=== PATIENT | female | born 1970 | race Caucasian/White ===

== ENCOUNTER 2016-08-08 17:12 | Emergency (ER) | payer OTHER ==
[~2016-08-08] VITALS: Ht 180.3 cm; Wt 91.8 kg
[~2016-08-08 17:12] MED LIST: ABILIFY2 MG PO; ACID CONTROL150 MG PO; ADVAIR 250/501 DISK IH; ADVAIR 500-501 EACH IH; ADVAIR 500/501 DISK IH; ALBUTEROL INHALER; ALBUTEROL NEB; ALBUTEROL SULF8.5 GM IH; ALBUTEROL2.5 MG/0.5 IH; AMBIEN10 MG PO; AMITIZA24 MICROGR PO; AZITHROMYCIN250 MG1 PO; BENADRYL25 MG PO; BENADRYL50 MG PO; BUMEX1 MG PO; CALAN80 MG PO; CALCIUM 600 +1 EAC9 PO; CALCIUM CARBON600 M1 PO; CALCIUM600 MG PO; CARBATROL-ER100 MG PO; CITRATE OF MAG296 ML PO; CLONAZEPAM0.5 MG PO; CYMBALTA60 MG PO; Calan PO; Cipro PO; D H E IM; DEMADEX20 MG PO; DEMEROL; DEPAKOTE; DEPAKOTE ER500 MG PO; DEPAKOTE250 MG PO; DEXILANT60 MG PO; DIHYDROERGO1 MG/1 ML SQ; DIVALPROEX SOD500 M1 PO; DOCUSATE SODIU100 MG PO; DULOXETINE HCL60 MG PO; DUONEB 2.5-0.5 M3 ML AEROSOL; FIORICET,ESG1 TABLET PO; FLEXERIL10 MG PO; Flagyl PO; GABAPENTIN300 MG PO; GABAPENTIN600 MG PO; GABAPENTIN800 MG PO; GRALISE600 MG PO; GUAIFENESIN WI120 M1 PO; HYDROCODON-ACE1 EAC7 PO; IPRATR-ALBUTEROL3 ML IH; K-DUR10 MEQ PO; LEVAQUIN500 MG PO; LEVAQUIN750 MG PO; LEVOFLOXACIN500 MG PO; LEVOFLOXACIN750 MG PO; LOPRESSOR25 MG PO; LYRICA100 MG PO; METAXALONE800 MG PO; METHYLPHENIDATE20 M1 PO; METOPROLOL TART25 MG PO; MIRALAX255 GM PO; MONTELUKAST SOD10 MG PO; MUCINEX600 MG PO; MYCOSTATIN 100,60 ML PO; NEURONTIN600 MG PO; NUVIGIL150 MG PO; OMEPRAZOLE40 M1 PO; OXYCODONE HCL15 MG PO; OXYCODONE HCL30 MG PO; PERCOCET 10/1 TABLET PO; PHENERGAN25 MG PR; PHENERGAN25 MG/1 ML; PREDNISONE10 MG PO; PREDNISONE20 MG PO; PRILOSEC OTC20 MG PO; PRILOSEC20 MG PO; PRILOSEC20.6 MG PO; PROAIR HFA8.5 GM IH; PROAIR HFA8.5 GM PO; PROMETHAZINE HC25 M1 PO; PROMETHAZINE HC25 MG PR; PROVENTIL,2.5 MG/3 M IH; PROVENTIL,200 INHALA IH; PROVENTIL17 GM IH; RITALIN20 MG PO; ROXICODONE15 MG PO; SINGULAIR10 MG PO; SINGULAIR5 MG PO; SPIRIVA RESPIMAT4 GM IH; SPIRIVA1 INHALATI IH; TESSALON200 MG PO; THEO-DUR,THEOC200 MG PO; THEOCHRON200 MG PO; THEOPHYLLINE A200 M1 PO; THEOPHYLLINE A300 M1 PO; TIZANIDINE HCL4 MG PO; TRAMADOL HCL50 MG PO; TUDORZA PRESS400 MCG IH; TYLENOL REGULA325 MG PO; TYLENOL SINUS PO; Tylenol Regular Stre PO; VENTOLIN HFA18 GM IH; VERAPAMIL ER300 MG; WELLBUTRIN75 MG PO; ZANTAC150 MG PO; ZOFRAN ODT4 MG PO; ZOFRAN4 MG PO; ZOLPIDEM TARTRA10 MG PO; ZOMIG ZMT5 MG; [UNRECOGNIZED DRUG - OTHER]; advair; singulair
[2016-08-08] MEDS ORDERED: ULTRAM50 MG PO (20:10)
[2016-08-08 21:21] VITALS: BP 102/75
== END 2016-08-08 21:22 | disposition home or self-care (01) ==
LOC: EME 17:12
DX: S86.911A Strain of unspecified muscle(s) and tendon(s) at lower leg level, right leg, initial encounter (principal); M17.11 Unilateral primary osteoarthritis, right knee; K21.9 Gastro-esophageal reflux disease without esophagitis; G40.909 Epilepsy, unspecified, not intractable, without status epilepticus; J44.9 Chronic obstructive pulmonary disease, unspecified; Z88.2 Allergy status to sulfonamides; Z91.041 Radiographic dye allergy status; Z88.1 Allergy status to other antibiotic agents; Z88.6 Allergy status to analgesic agent; Z87.891 Personal history of nicotine dependence
CPT/HCPCS: 73564; 93971; 99281; 99284; J3010

== ENCOUNTER 2016-08-11 23:07 | Inpatient (IN) | payer OTHER ==
[~2016-08-11] VITALS: Ht 180.3 cm; Wt 101.5 kg
[~2016-08-11 23:07] MED LIST changes: +ULTRAM50 MG PO
[2016-08-11 23:32] LABS: BASOPHIL COUNT 0.1 K/uL (0-0.1); EOSINOPHIL (%) 3.4 % (0-5); EOSINOPHIL COUNT 0.5 K/uL (0-0.3); IMMATURE GRANULOCYTE (%) 0.4 % (0.0-0.7); IMMATURE GRANULOCYTE COUNT 0.1 K/uL; INSTRUMENT ABS NEUTROPHIL CT 10.8 K/uL; MCH 28.4 PG (29.0-34.0); MCHC 32.1 G/DL (30.0-36.0); MCV 88.4 FL (83-99); MEAN PLAT.VOLUME 10.4 uM^3 (9.5-12.4); MONOCYTE (%) 6.2 % (3-12); NEUTROPHIL (%) 70.4 % (45-76); NEUTROPHIL COUNT 10.8 K/uL (1.8-6.4); PLATELET COUNT 320 K/uL (156-360); RBC DIS.WIDTH-CV 13.3 % (11.8-14.6); RBC DIS.WIDTH-SD 43.6 % (39-53); RED BLOOD COUNT 4.75 M/uL (3.80-5.20); WHITE BLOOD COUNT 15.4 K/uL (4.1-10.2)
[2016-08-11 23:40] LABS: AMYLASE 53 IU/L (1-118); CHLORIDE 106 mEq/L (99-109); POTASSIUM 4.3 mEq/L (3.7-5.4); SODIUM 142 mEq/L (136-147)
[2016-08-11 23:42] LABS: GLUCOSE 114 mg/dL (70-99)
[2016-08-11 23:43] LABS: ANION GAP 11 MEQ/L (2-14)
[2016-08-11 23:45] LABS: SERUM ETHYL ALCOHOL < 10 mg/dL
[2016-08-11 23:46] LABS: GFR ESTIMATE (CALCULATED) 57 mL/min/
[2016-08-11 23:47] LABS: UREA NITROGEN (BUN) 10 mg/dL (9-23)
[2016-08-11 23:49] LABS: LIPASE 20 U/L (1.0-51.0)
[2016-08-11 23:55] LABS: QUANTITATIVE HCG < 4.0 MIU/ML
[2016-08-12] VITALS (7 sets, daily range): BP systolic 93–117; BP diastolic 54–69
[2016-08-12] MEDS ORDERED: K-DUR20 MEQ PO (15:26)
[2016-08-12] MEDS ORDERED: PREDNISONE10 MG PO (15:30)
[2016-08-12] MEDS ORDERED: KLONOPIN1 MG PO (15:33)
[2016-08-12] MEDS ORDERED: VENLAFAXINE HC150 M1 PO (15:36)
[2016-08-13 03:58] VITALS: BP 109/56
[2016-08-13 07:48] VITALS: BP 106/51
[2016-08-13 11:26] VITALS: BP 96/53
[2016-08-13 15:00] VITALS: BP 114/65
[2016-08-13 19:26] VITALS: BP 104/55
[2016-08-13] MEDS ORDERED: PREDNISONE20 MG PO (21:12)
[2016-08-13 22:00] VITALS: BP 132/78
== END 2016-08-13 22:33 | disposition short-term general hospital (02) | DRG 563 ==
LOC: EME 23:07 → EDOF 08-12 02:15 → 3EAST 08-12 02:15
PROVIDERS: Emergency Medicine
DX: S82.852A Displaced trimalleolar fracture of left lower leg, initial encounter for closed fracture (principal); S93.02XA Subluxation of left ankle joint, initial encounter; I95.9 Hypotension, unspecified; S92.345A Nondisplaced fracture of fourth metatarsal bone, left foot, initial encounter for closed fracture; S92.335A Nondisplaced fracture of third metatarsal bone, left foot, initial encounter for closed fracture; S92.325A Nondisplaced fracture of second metatarsal bone, left foot, initial encounter for closed fracture; Z87.891 Personal history of nicotine dependence; E66.3 Overweight; W18.39XA Other fall on same level, initial encounter; Y93.E1 Activity, personal bathing and showering; Y92.012 Bathroom of single-family (private) house as the place of occurrence of the external cause; J45.909 Unspecified asthma, uncomplicated; J32.9 Chronic sinusitis, unspecified; M47.9 Spondylosis, unspecified; G89.4 Chronic pain syndrome; F41.9 Anxiety disorder, unspecified; M17.11 Unilateral primary osteoarthritis, right knee; Z68.31 Body mass index [BMI] 31.0-31.9, adult; J44.9 Chronic obstructive pulmonary disease, unspecified; F31.9 Bipolar disorder, unspecified
CPT/HCPCS: 71010; 73590; 73610; 73700; 80048; 81003; 82150; 83605; 83690; 84702; 85025; 86900; 86901; 87040; 93005; 94640; 94640 76; 94799; 99202; 99281; 99285; G0480; J1170; J2270; J3010; J7030; J7512

== ENCOUNTER 2016-08-20 09:01 | Inpatient (IN) | payer OTHER ==
[~2016-08-20] VITALS: Ht 167.6 cm; Wt 93.1 kg
[~2016-08-20 09:01] MED LIST changes: +K-DUR20 MEQ PO; +KLONOPIN1 MG PO; +VENLAFAXINE HC150 M1 PO
[2016-08-20 12:12] LABS: HEMATOCRIT 38.3 % (36.0-46.0); MCH 28.5 PG (29.0-34.0); MCHC 32.1 G/DL (30.0-36.0); MCV 88.7 FL (83-99); MEAN PLAT.VOLUME 10.1 uM^3 (9.5-12.4); RBC DIS.WIDTH-CV 13.4 % (11.8-14.6); RBC DIS.WIDTH-SD 43.6 % (39-53); RED BLOOD COUNT 4.32 M/uL (3.80-5.20); WHITE BLOOD COUNT 14.6 K/uL (4.1-10.2)
[2016-08-20 12:19] LABS: CHLORIDE 106 mEq/L (99-109); PLATELET COUNT 436 K/uL (156-360); POTASSIUM 4.1 mEq/L (3.7-5.4); SODIUM 143 mEq/L (136-147)
[2016-08-20 12:21] LABS: GLUCOSE 97 mg/dL (70-99)
[2016-08-20 12:22] LABS: ANION GAP 15 MEQ/L (2-14)
[2016-08-20 12:23] LABS: TOTAL BILIRUBIN 0.6 mg/dL (0.0-1.0)
[2016-08-20 12:24] LABS: SERUM ETHYL ALCOHOL < 10 mg/dL
[2016-08-20 12:25] LABS: GFR ESTIMATE (CALCULATED) > 59 mL/min/
[2016-08-20 12:26] LABS: ALKALINE PHOSPHATASE 98 IU/L (3-129)
[2016-08-20 12:27] LABS: UREA NITROGEN (BUN) 12 mg/dL (9-23)
[2016-08-20 12:28] LABS: SALICYLATE < 5.0 MG/DL (15-30)
[2016-08-20 13:05] LABS: ADD MIUA? YES; BILIRUBIN NEGATIVE; BLOOD SMALL; COLOR YELLOW ((YELLOW)); GLUCOSE (STRIP) NEGATIVE; KETONES 80; LEUKOCYTES TRACE; NITRITE NEGATIVE; PROTEIN (STRIP) NEGATIVE; SPECIFIC GRAVITY 1.024 (1.000-1.030); UROBILINOGEN 0.2 MG/DL (0.2-1.0)
[2016-08-20 13:16] LABS: ADD MEDTOX COMMENT Y; AMPHETAMINE NEGATIVE (500 ng/mL); BARBITURATES NEGATIVE (200 ng/mL); BENZODIAZEPINES PRESUMPTIVE POSITIVE (150 ng/mL); COCAINE NEGATIVE (150 ng/mL); INTERNAL CONTROLS VALID? YES; METHADONE NEGATIVE (200 ng/mL); METHAMPHETAMINE NEGATIVE (500 ng/mL); OPIATES (MORPHINE) NEGATIVE (100 ng/mL); OXYCODONE PRESUMPTIVE POSITIVE (100 ng/mL); PHENCYCLIDINE NEGATIVE (25 ng/mL); PROPOXYPHENE NEGATIVE (300 ng/mL); THC CANNABINOIDS NEGATIVE (50 ng/mL); TRICYCLIC ANTIDEPRESSANTS NEGATIVE (300 ng/mL)
[2016-08-20 13:47] LABS: BACTERIA RARE /HPF; CALCIUM OXALATE CRYSTALS 1+ /HPF; EPITHELIAL CELLS 1+ /HPF; MUCUS 4+ /LPF; RED BLOOD CELLS 0-5 /HPF (0-5); UCUL ADDED? NO; WHITE BLOOD CELLS 0-5 /HPF (0-5)
[2016-08-20 14:01] LABS: BENZODIAZEPINES QUANT VALUE 0 NG/ML; BENZODIAZEPINES, URINE SCREEN Negative (200 ng/mL)
[2016-08-20] MEDS ORDERED: DIHYDROERGO1 MG/1 ML SC (17:33)
[2016-08-20] MEDS ORDERED: PREDNISONE10 MG PO (18:02)
[2016-08-20] MEDS ORDERED: METOLAZONE2.5 MG PO (18:03)
[2016-08-20] MEDS ORDERED: TORSEMIDE20 MG PO (18:03)
[2016-08-20] MEDS ORDERED: BACLOFEN10 MG PO (18:04)
[2016-08-20] MEDS ORDERED: NYSTATIN100000 UN1 PO (18:04)
[2016-08-20] MEDS ORDERED: LOVENOX30 MG/0.3 SC (18:04)
[2016-08-20] MEDS ORDERED: COLACE100 MG PO (18:04)
[2016-08-20 21:46] VITALS: BP 142/81
[2016-08-21 03:16] VITALS: BP 170/76
[2016-08-21 06:35] LABS: HEMATOCRIT 34.9 % (36.0-46.0); MCH 29.4 PG (29.0-34.0); MCHC 33.8 G/DL (30.0-36.0); MEAN PLAT.VOLUME 10.6 uM^3 (9.5-12.4); PLATELET COUNT 470 K/uL (156-360); RBC DIS.WIDTH-CV 13.2 % (11.8-14.6); RBC DIS.WIDTH-SD 41.7 % (39-53); RED BLOOD COUNT 4.01 M/uL (3.80-5.20); WHITE BLOOD COUNT 14.5 K/uL (4.1-10.2)
[2016-08-21 06:52] VITALS: BP 145/80
[2016-08-21 07:03] LABS: ALKALINE PHOSPHATASE 91 IU/L (3-129); ANION GAP 14 MEQ/L (2-14); CHLORIDE 105 MEQ/L (99-109); GFR ESTIMATE (CALCULATED) > 59 mL/min/; GLUCOSE 101 mg/dL (70-99); POTASSIUM 4.2 MEQ/L (3.7-5.4); SAMPLE HEMOLYSIS CHECK 0; SAMPLE ICTERIC CHECK 0; SAMPLE LIPEMIA CHECK 0; SODIUM 141 MEQ/L (136-147); TOTAL BILIRUBIN 0.4 MG/DL (0.0-1.0); UREA NITROGEN (BUN) 15 mg/dL (9-23)
[2016-08-21 11:18] VITALS: BP 148/83
[2016-08-21 13:19] LABS: C DIFF TOXIN NEGATIVE (NEGATIVE); PROBE CHECK PASS; SPECIMEN PROCESSING CONTROL PASS
[2016-08-21 16:00] VITALS: BP 126/81
[2016-08-21 19:32] VITALS: BP 136/81
[2016-08-22 04:19] VITALS: BP 129/66
[2016-08-22 07:39] VITALS: BP 137/75
[2016-08-22 15:00] VITALS: BP 140/82
[2016-08-23 05:40] LABS: HEMATOCRIT 34.8 % (36.0-46.0); MCH 29.4 PG (29.0-34.0); MCHC 33.3 G/DL (30.0-36.0); MCV 88.1 FL (83-99); MEAN PLAT.VOLUME 10.2 uM^3 (9.5-12.4); PLATELET COUNT 439 K/uL (156-360); RBC DIS.WIDTH-CV 13.3 % (11.8-14.6); RBC DIS.WIDTH-SD 42.7 % (39-53); RED BLOOD COUNT 3.95 M/uL (3.80-5.20); WHITE BLOOD COUNT 11.9 K/uL (4.1-10.2)
[2016-08-23 06:35] LABS: ALKALINE PHOSPHATASE 84 IU/L (3-129); ANION GAP 10 MEQ/L (2-14); CHLORIDE 108 MEQ/L (99-109); GFR ESTIMATE (CALCULATED) > 59 mL/min/; GLUCOSE 82 mg/dL (70-99); POTASSIUM 3.5 MEQ/L (3.7-5.4); SAMPLE HEMOLYSIS CHECK 0; SAMPLE ICTERIC CHECK 0; SAMPLE LIPEMIA CHECK 0; SODIUM 144 MEQ/L (136-147); UREA NITROGEN (BUN) 5 mg/dL (9-23)
[2016-08-23 06:47] LABS: TOTAL BILIRUBIN 0.3 MG/DL (0.0-1.0)
[2016-08-23 07:38] VITALS: BP 132/60
[2016-08-23 12:17] VITALS: BP 130/78
[2016-08-23 15:51] VITALS: BP 134/81
[2016-08-24 00:05] VITALS: BP 130/78
[2016-08-24 08:22] VITALS: BP 134/87
[2016-08-24] MEDS ORDERED: GABAPENTIN600 MG PO (14:55)
[2016-08-24] MEDS ORDERED: ROXICODONE15 MG PO (14:55)
== END 2016-08-24 16:10 | disposition home or self-care (01) | DRG 918 ==
LOC: EME → EDBD 09:01 → 5EAST 17:35 → EDOF 17:35 → 5EAST 21:35
PROVIDERS: Emergency Medicine; Internal Medicine
DX: T50.901A Poisoning by unspecified drugs, medicaments and biological substances, accidental (unintentional), initial encounter (principal); F05 Delirium due to known physiological condition; S82.853D Displaced trimalleolar fracture of unspecified lower leg, subsequent encounter for closed fracture with routine healing; S92.302D Fracture of unspecified metatarsal bone(s), left foot, subsequent encounter for fracture with routine healing; M79.7 Fibromyalgia; G89.4 Chronic pain syndrome; G47.00 Insomnia, unspecified; J44.9 Chronic obstructive pulmonary disease, unspecified; J32.9 Chronic sinusitis, unspecified; K21.9 Gastro-esophageal reflux disease without esophagitis; Z87.891 Personal history of nicotine dependence
CPT/HCPCS: 70450; 80053; 81003; 82140; 84999; 85027; 87493; 94640; 94640 76; 94760; 99202; 99281; 99285; G0480; J1630; J1650; J2060; J2250; J7512

== ENCOUNTER 2017-07-11 10:20 | Emergency (ER) | payer OTHER ==
[~2017-07-11] VITALS: Ht 180.3 cm; Wt 96.9 kg
[~2017-07-11 10:20] MED LIST changes: +BACLOFEN10 MG PO; +COLACE100 MG PO; +DIHYDROERGO1 MG/1 ML SC; +LOVENOX30 MG/0.3 SC; +METOLAZONE2.5 MG PO; +NYSTATIN100000 UN1 PO; +TORSEMIDE20 MG PO
[2017-07-11] MEDS ORDERED: PERCOCET 5/31 TABLET PO (12:20)
[2017-07-11 12:38] VITALS: BP 101/71
[2017-07-15] MEDS ORDERED: PERCOCET 10/1 TABLET PO (16:47)
[2017-07-15] MEDS ORDERED: MORPHINE SULFAT15 MG PO (16:48)
[2017-07-15] MEDS ORDERED: TRAZODONE HCL100 MG PO (16:49)
[2017-07-15] MEDS ORDERED: NEURONTIN800 MG PO (16:50)
== END 2017-07-11 12:49 | disposition home or self-care (01) ==
LOC: EME 10:20
PROC: 2W3QX1Z Immobilization of Right Lower Leg using Splint (ICD-10-PCS; principal; 2017-07-11)
DX: S82.831A Other fracture of upper and lower end of right fibula, initial encounter for closed fracture (principal); S60.212A Contusion of left wrist, initial encounter; W01.0XXA Fall on same level from slipping, tripping and stumbling without subsequent striking against object, initial encounter; K21.9 Gastro-esophageal reflux disease without esophagitis; J44.9 Chronic obstructive pulmonary disease, unspecified; F41.9 Anxiety disorder, unspecified; F32.9 Major depressive disorder, single episode, unspecified; Z98.51 Tubal ligation status; Z88.6 Allergy status to analgesic agent; Z88.5 Allergy status to narcotic agent; Z88.2 Allergy status to sulfonamides; Z87.891 Personal history of nicotine dependence; F10.10 Alcohol abuse, uncomplicated; Z91.041 Radiographic dye allergy status
CPT/HCPCS: 73110; 73610; 99281; 99284

== ENCOUNTER 2017-07-20 09:06 | Day surgery (SDC) | payer OTHER ==
[~2017-07-20] VITALS: Ht 180.3 cm; Wt 90.7 kg
[~2017-07-20 09:06] MED LIST changes: +MORPHINE SULFAT15 MG PO; +NEURONTIN800 MG PO; +PERCOCET 5/31 TABLET PO; +TRAZODONE HCL100 MG PO
[2017-07-20 09:30] VITALS: BP 114/66
[2017-07-20 14:35] VITALS: BP 108/64
[2017-07-20 15:14] VITALS: BP 110/56
== END 2017-07-20 15:30 | disposition home or self-care (01) ==
LOC: SDC 09:06
PROC: 0QSJ04Z Reposition Right Fibula with Internal Fixation Device, Open Approach (ICD-10-PCS; principal; 2017-07-20)
DX: S82.841A Displaced bimalleolar fracture of right lower leg, initial encounter for closed fracture (principal); W19.XXXA Unspecified fall, initial encounter; J44.9 Chronic obstructive pulmonary disease, unspecified; G40.909 Epilepsy, unspecified, not intractable, without status epilepticus; Z90.49 Acquired absence of other specified parts of digestive tract; Z82.61 Family history of arthritis
CPT/HCPCS: 73610; 76000; C1713; J0131; J0330; J1100; J1170; J2250; J2310; J2405; J2795; J3010; S0020